=== PATIENT | male | born 1955 | race Caucasian/White ===

== ENCOUNTER 2016-07-28 07:09 | Inpatient (IN) | payer MEDICARE ==
[~2016-07-28] VITALS: Ht 182.9 cm; Wt 135.0 kg
[~2016-07-28 07:09] MED LIST: ALLO100T PO; ATOR20TA38 PO; BACTDS PO; BUME1TAB18 PO; CARV25TA79 PO; CEPH-443 PO; FER325 PO; HYDR-902 PO; HYDR-906 PO; INSU100V23 SC; LANT3I SC; LATA2.5D2 BOTH EYES; LOSA25TA5 PO; NIFE30TA60 PO; ONDA4TAB14 PO; PRED10TA PO
[2016-07-28 07:11] VITALS: Ht 182.9 cm; Wt 135.0 kg
[2016-07-28] MEDS ORDERED: ONDANSETRON 4 MG INJ IV STA (07:23)
[2016-07-28] MEDS ORDERED: SOD CHLORIDE 0.9% 1,000 ML IV STA (07:23)
[2016-07-28] MEDS ORDERED: HYDROmorphONE 1 MG/ML SYG IV STA (07:23)
--- NOTE | 2016-07-28 07:32 | ERA ---
ER Documentation Chief Complaint Date/Time DATE: 07/28/16 TIME: 07:31 Chief Complaint actively vomititing since last night; generalized abdominal pain HPI This is a 61-year-old male who presents emergency room with abdominal pain and vomiting who is concerned for possible small bowel obstruction. The patient has a history of ventral hernia status post surgical repair, mesh placement complicated by small bowel obstructions. He describes abdominal pain that is moderate to severe, cramping with nonbloody nonbilious emesis. Slightly loose stool yesterday evening. No fevers or chills. No chest pain or shortness of breath. ROS All systems reviewed and are negative except as per history of present illness. Medications Home Meds Reported Medications Nifedipine* (Nifedipine ER*) 30 Mg Tablet.sa, 30 MG PO BID, TAB.SA 02/21/16 Losartan Potassium* (Losartan Potassium*) 25 Mg Tablet, 25 MG PO DAILY, TAB 02/21/16 Latanoprost (Latanoprost) 2.5 Ml Drops, 1 DROP BOTH EYES QHS, #1 BOTTLE 02/21/16 Ferrous Sulfate* (Ferrous Sulfate*) 325 Mg Tabec, 325 MG PO DAILY, TAB 02/21/16 Carvedilol* (Carvedilol*) 25 Mg Tablet, 25 MG PO BID, #60 TAB 02/21/16 Bumetanide* (Bumetanide*) 1 Mg Tablet, 2 MG PO DAILY, TAB 02/21/16 Atorvastatin Calcium* (Atorvastatin Calcium*) 20 Mg Tablet, 20 MG PO DAILY, #30 TAB 02/21/16 Allopurinol* (Allopurinol*) 100 Mg Tablet, 100 MG PO BID, TAB 02/21/16 Prednisone* (Prednisone*) 10 Mg Tab, 10 MG PO DAILY Y for PRN, TAB 02/21/16 Insulin Glargine* (Lantus*) 100 Unit/Ml Soln, 55 UNIT SC QHS, #1 VIAL 06/22/15 Insulin Regular, Human* (Novolin R*) 100 U/Ml Vial, 10-12 UNIT SC AC MEALS, VIAL 06/22/15 Discontinued Reported Medications Hydrocodone/Acetaminophen (Hines 5-325 Tablet) 1 Each Tablet, 1 EACH PO Q4 Y for PRN, TAB 02/21/16 Discontinued Scripts Cephalexin* (Keflex*) 500 Mg Capsule, 500 MG PO QID for 7 Days, CAP Prov:KIRSTEN TORRES PA-C 02/23/16 Sulfamethoxazole-Trimethoprim* (Bactrim* DS) 800-160 Mg Tab, 1 TAB PO BID for 7 Days, TAB Prov:KIRSTEN TORRES PA-C 02/23/16 Ondansetron (Ondansetron Odt) 4 Mg Tab.rapdis, 4 MG PO Q6H Y for NAUSEA AND/OR VOMITING, #30 TAB Prov:RODNEY LAMBERT MD 02/21/16 Hydrocodone/Acetaminophen (Hines 10-325 Tablet) 1 Each Tablet, 1 TAB PO Q6H Y for PAIN, #7 TAB Prov:RODNEY LAMBERT MD 02/21/16 Hydrocodone/Acetaminophen (Hines 10-325 Tablet) 1 Each Tablet, 1 TAB PO Q6H Y for PAIN, #7 TAB Prov:MARCO A MITCHELLSTALEXUS Victoria DO 02/21/16 Ondansetron (Ondansetron Odt) 4 Mg Tab.rapdis, 4 MG PO Q6H Y for NAUSEA AND/OR VOMITING, #10 TAB Prov:LESELENAOSAPOSTOLOS AImelda DO 02/21/16 Allergies Allergies: Coded Allergies: No Known Allergy (Unverified , 02/21/16) PMhx/Soc History of Surgery: Yes (Hernia x3, Strangulated Bowel) Anesthesia Reaction: No Hx Neurological Disorder: No Hx Respiratory Disorders: No Hx Cardiac Disorders: Yes (HTN, CHF) Hx Psychiatric Problems: No Hx Miscellaneous Medical Probl: Yes (PVD, PAD, gout, anemia, hernia) Hx Alcohol Use: No Hx Substance Use: No Hx Tobacco Use: No FmHx Family History: No diabetes Physical Exam Vitals Vital Signs Date Time Temp Pulse Resp B/P Pulse Ox O2 Delivery O2 Flow Rate FiO2 07/28/16 08:51 56 21 147/61 99 07/28/16 07:11 98.3 58 19 156/70 99 Physical Exam General: Well developed, well nourished, no acute distress Head: Normocephalic, atraumatic. Eyes: Pupils equally reactive, EOM intact ENT: Moist mucous membranes Neck: Supple, no lymphadenopathy Respiratory: Lungs clear bilaterally, no distress Cardiovascular: RRR, no murmurs, rubs, or gallops Abdominal: Soft, large ventral hernia that is reducible, generalized tenderness without peritonitis : Deferred MSK: 3+ pitting bilateral lower extremity edema, no unilateral swelling, 5/5 strength Neurologic: Alert and oriented, moving all extremities, normal speech, no focal weakness, no cerebellar signs Skin: No rash Psych: Normal mood Result Diagram: 07/28/16 0732 07/28/16 0732 Results 24 hrs Laboratory Tests Test 07/28/16 07:32 White Blood Count 8.910^3/ul Red Blood Count 3.6210^6/ul Hemoglobin 9.8g/dl Hematocrit 31.1% Mean Corpuscular Volume 85.9fl Mean Corpuscular Hemoglobin 27.1pg Mean Corpuscular Hemoglobin Concent 31.5g/dl Red Cell Distribution Width 14.6% Platelet Count 62448^3/UL Mean Platelet Volume 9.3fl Neutrophils % 68.5% Lymphocytes % 16.7% Monocytes % 8.7% Eosinophils % 5.3% Basophils % 0.3% Nucleated Red Blood Cells % 0.0/100WBC Neutrophils # 6.110^3/ul Lymphocytes # 1.510^3/ul Monocytes # 0.810^3/ul Eosinophils # 0.510^3/ul Basophils # 0.010^3/ul Nucleated Red Blood Cells # 0.010^3/ul Prothrombin Time 13.2Sec Prothrombin Time Ratio 1.0 INR International Normalized Ratio 1.00 Activated Partial Thromboplast Time 30.3Sec Sodium Level 139mmol/L Potassium Level 4.0mmol/L Chloride Level 99mmol/L Carbon Dioxide Level 26mmol/L Anion Gap 18 Blood Urea Nitrogen 56mg/dl Creatinine 2.58mg/dl Glucose Level 144mg/dl Calcium Level 9.8mg/dl Total Bilirubin 0.3mg/dl Direct Bilirubin 0.00mg/dl Indirect Bilirubin 0.3mg/dl Aspartate Amino Transf (AST/SGOT) 22IU/L Alanine Aminotransferase (ALT/SGPT) 22IU/L Alkaline Phosphatase 86IU/L Total Protein 7.3g/dl Albumin 4.0g/dl Globulin 3.30g/dl Albumin/Globulin Ratio 1.21 Lipase 59U/L Current Medications Medications (Trade) Dose Ordered Sig/Maye Route PRN Reason Start Time Stop Time Status Last Admin Dose Admin Sodium Chloride (NS) 1,000 ml @ 1,000 mls/hr Q1H STAT IV 07/28/16 07:23 07/28/16 08:22 DC 07/28/16 07:35 Hydromorphone HCl (Dilaudid) 1 mg ONCE STAT IV 07/28/16 07:23 07/28/16 07:25 DC 07/28/16 07:35 Ondansetron HCl (Zofran Inj) 4 mg ONCE STAT IV 07/28/16 07:23 07/28/16 07:25 DC 07/28/16 07:36 Lorazepam (Ativan) 1 mg ONCE ONCE IV 07/28/16 09:00 07/28/16 09:01 DC 07/28/16 09:28 Lidocaine (Xylocaine (Viscous)) 15 ml ONCE ONCE PO 07/28/16 09:00 07/28/16 09:01 DC 07/28/16 09:30 Iohexol (Omnipaque 300mg/ ml) 15 ml ONCE STAT PO 07/28/16 09:12 07/28/16 09:44 DC Iohexol (Omnipaque 300mg/ ml) 100 ml ONCE STAT PO 07/28/16 09:35 07/28/16 09:44 DC Iohexol (Omnipaque 300mg/ ml) 60 ml ONCE STAT PO 07/28/16 09:42 07/28/16 09:44 DC Procedures/MDM EKG, MONITORS, & DIAGNOSTIC IMAGING: Chest x-ray: I reviewed and interpreted a 1 view of the chest Mediastinum: No enlargement Cardiac silhouette: No cardiomegaly Airspace: Clear lung levine bilaterally without evidence of pneumothorax Bones: No evidence of fracture CT abdomen and pelvis IMPRESSION: 1. The patient is status post previous small bowel resection with mild partial small-bowel obstructing extending to the level of the anastomoses. 2. Again noted is a wide mouth ventral hernia containing omental fat and bowel without evidence of incarceration. 3. Again noted is cholelithiasis without evidence of biliary ductal dilation. 4. Negative for intra-abdominal free air fluid or abscesses. No change in the bilateral inguinal lymphadenopathy. No intra-abdominal lymphadenopathy. 5. Mild cardiomegaly and coronary artery disease. atherosclerosis of the aorta and its branches but no aneurysm. RPTAT:AAJJ LAB INTERPRETATION: No significant leukocytosis, chronic renal insufficiency MEDICAL DECISION MAKING: The patient's presentation is consistent with potential small bowel obstruction given his surgical history and clinical examination. Also consider possible viral process given looser stool. Given the patient's age, comorbidities CT imaging of the abdomen and pelvis is necessary. Laboratory testing will be initiated the patient will be given IV fluids and pain control medications. ER COURSE: The patient CT imaging shows evidence of bowel obstruction with transition point. An NG tube was placed. The patient was given Ativan and viscous lidocaine. I spoke to the general surgeon seasonal delivery driver, Dr. Gan. He would like 100 cc of Omnipaque given via NG tube and an acute abdominal series ordered 6 hours from medication being given. The patient is hemodynamically stable. I kept the patient and/or family informed of laboratory and diagnostic imaging results throughout the emergency room course. DISPOSITION PLAN: Medical surgical admission for management of small bowel obstruction CONSULTATION: Accepting care team and consultations: I discussed the current laboratory data, diagnostic imaging and emergency care provided. Admitting team: Dr. Grissom Admitting team indication: Insurance directed, primary care physician did not call back for greater than 1 hour. Patient admitted to panel. Consulting services: General surgeon, Dr. Gan Departure Diagnosis: Primary Impression: Small bowel obstruction Additional Impression: Chronic renal insufficiency Qualified Code: N18.9 - Chronic renal insufficiency, unspecified stage Condition: Stable LIVIA NARAYAN MD Jul 28, 2016 07:32
--- NOTE | 2016-07-28 08:15 | RADRPT ---
PROCEDURE: XR Chest. CLINICAL INDICATION: Abdominal Pain TECHNIQUE: Single AP view of the chest was obtained. COMPARISON: None FINDINGS: There is mild cardiomegaly and low lung volumes with prominence of interstitial markings, likely due to congestive changes and vascular crowding. The aortic arch is calcified. There is no significant pleural effusion or pneumothorax. Osseous and soft tissue structures are unremarkable. IMPRESSION: Mild cardiomegaly and low lung volumes with prominence of interstitial markings, likely due to conge stive changes and vascular crowding. Aortic atherosclerosis. No focal infiltrates or effusions. RPTAT: EE Physician Kody Date Time Electronically viewed and signed by Jonathon Aldana Physician on 07/28/2016 08:15 RA/
[2016-07-28 08:36] LABS: ADD SCAN DIFF NO
[2016-07-28 08:41] LABS: BASOPHILS % 0.3 % (0.0-2.0); EOSINOPHILS # 0.5 10^3/ul (0.0-0.5); EOSINOPHILS % 5.3 % (0.0-7.0); HEMATOCRIT 31.1 % (42.0-52.0); HEMOGLOBIN 9.8 g/dl (14.0-18.0); LYMPHOCYTES # 1.5 10^3/ul (0.8-2.9); LYMPHOCYTES % 16.7 % (15.0-51.0); MEAN CORPUSCULAR HEMOGLOBIN 27.1 pg (29.0-33.0); MEAN CORPUSCULAR HGB CONC 31.5 g/dl (32.0-37.0); MEAN CORPUSCULAR VOLUME 85.9 fl (82.0-101.0); MEAN PLATELET VOLUME 9.3 fl (7.4-10.4); MONOCYTE # 0.8 10^3/ul (0.3-0.9); MONOCYTES % 8.7 % (0.0-11.0); NEUTROPHIL # 6.1 10^3/ul (1.6-7.5); NEUTROPHILS % 68.5 % (39.0-77.0); PLATELET COUNT 244 10^3/UL (140-415); RED BLOOD COUNT 3.62 10^6/ul (4.70-6.10); RED CELL DISTRIBUTION WIDTH 14.6 % (11.5-14.5); WHITE BLOOD COUNT 8.9 10^3/ul (4.8-10.8)
--- NOTE | 2016-07-28 08:43 | RADRPT ---
AMENDMENT: 07/28/2016 7:14:58 PM Jaya Quevedo Md ADDENDUM: Although there is focal dilatation of the small bowel at the site of anastomosis in the right mid ab domen, small bowel returns normal-caliber immediately proximal and distal to the anastomoses. The s mall bowel obstruction as configuration and most suspicious for obstruction related to the described ventral hernia. PROCEDURE: CT Abdomen and pelvis without contrast. CLINICAL INDICATION: Abdominal pain. Umbilical hernia. TECHNIQUE: CT scan of the abdomen and pelvis without contrast was performed on a multidetector hig h-resolution CT scan. . Coronal and sagittal reformatted images were obtained from the axial [facility] e images. Standard CT scan of the abdomen pelvis without contrast protocols were performed. The total exam CTDI equals 22.77 mGy and the total exam DLP equals 1729.21 mGy-cm. One or more of the following dose reduction techniques were used: - Automated exposure control. - Adjustment of the mA and/or kV according to patient size. Use of iterative reconstruction technique. COMPARISON: CT abdomen pelvis without contrast 02/21/2016 FINDINGS: Again noted is evidence of previous partial small-bowel obstruction involving the small bowel in the right mid abdomen. Note that there are mildly dilated loops of small bowel extending to the level of the anastomoses with normal caliber small bowel distal to the anastomoses. Consistent with mild partial small-bowel obstruction. Again noted is a wide mouth ventral hernia containing omental fat and bowel without evidence of incarceration. The stomach and large bowel are unremarkable. Negativ e for intra-abdominal free air, free fluid or abscesses. Again noted is bilateral inguinal lymphade nopathy. No intra-abdominal lymphadenopathy. Again noted is cholelithiasis without evidence of biliary ductal dilation. The liver spleen pancrea s and adrenal glands are normal size configuration without focal lesions. The kidneys are normal in size without evidence of calcified renal calculi, hydronephrosis or intra renal masses bilaterally. The urinary bladder is unremarkable. The prostate gland is unremarkable. There is atherosclerosis of the aorta and its branches but no aneurysm. Minimal dependent atelectas is. The lung bases are otherwise unremarkable. The heart is mildly enlarged and there is coronary artery disease present. There is extensive degenerative changes lower thoracic and lumbar spine. N o acute osseous findings. There are no osteoblastic/osteolytic lesions. IMPRESSION: 1. The patient is status post previous small bowel resection with mild partial small-bowel obstruct ing extending to the level of the anastomoses. 2. Again noted is a wide mouth ventral hernia containing omental fat and bowel without evidence of incarceration. 3. Again noted is cholelithiasis without evidence of biliary ductal dilation. 4. Negative for intra-abdominal free air fluid or abscesses. No change in the bilateral inguinal l ymphadenopathy. No intra-abdominal lymphadenopathy. 5. Mild cardiomegaly and coronary artery disease. atherosclerosis of the aorta and its branches bu t no aneurysm. RPTAT:AAJJ .Jaya Quevedo MD, MD Date Time Electronically viewed and signed by .Jaya Quevedo MD, on 07/28/2016 19:15 .K/
[2016-07-28 08:52] LABS: PROTIME 13.2 Sec (12.2-14.2)
[2016-07-28 08:53] LABS: PARTIAL THROMBOPLASTIN TIME 30.3 Sec (25.0-35.0)
[2016-07-28 08:56] LABS: CREATININE 2.58 mg/dl (0.61-1.24)
[2016-07-28 08:57] LABS: ALBUMIN/GLOBULIN RATIO 1.21; BILIRUBIN,INDIRECT 0.3 mg/dl (0-1.1); BILIRUBIN,TOTAL 0.3 mg/dl (0.2-1.3); CALCIUM 9.8 mg/dl (8.4-10.2); TOTAL PROTEIN 7.3 g/dl (6.1-8.1)
[2016-07-28] MEDS ORDERED: LIDOCAINE 2% VISC 15 ML CUP PO ONE (09:00)
[2016-07-28] MEDS ORDERED: LORAZEPAM 2 MG INJ IV ONE (09:00)
[2016-07-28] MEDS ORDERED: IOHEXOL 300MG/ML 30 ML BTL PO STA ×3 (09:12→09:42)
[2016-07-28] MEDS ORDERED: ONDANSETRON 4 MG INJ IV PRN (10:30)
[2016-07-28] MEDS ORDERED: ACETAMINOPHEN 325 MG TAB PO PRN ×2 (10:30→11:00)
[2016-07-28] MEDS: D5W-0.45 NACL + KCL 20 MEQ 1,000 ML IV SCH ×2 (10:48→12:22)
[2016-07-28] MEDS ORDERED: BISACODYL (EC) 5 MG TAB PO PRN (11:00)
[2016-07-28] MEDS ORDERED: NACL 0.9% 3 ML SYG IV SCH (11:00)
[2016-07-28] MEDS ORDERED: GLUCAGON 1 MG INJ IM PRN (11:00)
[2016-07-28] MEDS ORDERED: DEXTROSE 50% 50 ML SYRINGE IV PRN ×2 (11:00)
[2016-07-28] MEDS ORDERED: DOCUSATE SODIUM 100 MG CAP PO PRN (11:00)
[2016-07-28] MEDS ORDERED: HYDROCODONE/APAP (5/325) TAB PO PRN (11:00)
[2016-07-28] MEDS ORDERED: ACETAMINOPHEN 650 MG SUPP PR PRN (11:00)
[2016-07-28] MEDS ORDERED: GLUCOSE GEL 15 GRAM TUBE PO PRN ×2 (11:00)
[2016-07-28] MEDS ORDERED: GLUCOSE GEL 15 GRAM TUBE BUCCAL PRN (11:00)
[2016-07-28 11:10] VITALS: PULSE 60; TEMP 97.9
[2016-07-28 12:14] VITALS: BP 178/77; RESP 19
[2016-07-28] MEDS: INSULIN ASPART [NOVOLOG] 3 ML PEN SC SCH ×3 (12:25→20:51)
[2016-07-28] MEDS: morphine 2 MG INJ IV PRN ×3 (12:31→20:49)
[2016-07-28] MEDS: ONDANSETRON 4 MG INJ IV PRN ×2 (12:31→20:57)
[2016-07-28] MEDS: NIFEdipine (XL) 30 MG TAB PO SCH ×2 (16:07→20:50)
--- NOTE | 2016-07-28 16:28 | CONS ---
DATE OF ADMISSION: 07/28/2016 DATE OF CONSULTATION: 07/28/2016 REASON FOR CONSULTATION: Congestive heart failure. CHIEF COMPLAINT: Abdominal pain. HISTORY OF PRESENT ILLNESS: Thank you for this referral. History obtained from the patient who is a poor historian, extensive review of the old chart, discussion with physician and staff. This is a 61-year-old gentleman with history of congestive heart failure, hypertension, diabetes, chronic kid sarah disease, and history of small-bowel obstruction who was admitted with complaint of abdominal vidhya n. The patient says since yesterday he has had severe abdominal pain, diffuse, could not explain ex acerbating factor. Also has had some nausea, vomiting. He has been admitted for further workup inc luding a workup for small-bowel obstruction. His blood pressure has been elevated. He denies any P ND, orthopnea to me. Denies any chest pain, left-sided chest pain or pressure to me. He denies any shortness of breath to me at this point, does not walk much, mostly bed bound. PAST MEDICAL HISTORY: History of hypertension, history of diabetes, chronic kidney disease, history of small-bowel obstruction, history of congestive heart failure, unclear, probably related to diast olic dysfunction and fluid overload. MEDICATIONS PRIOR TO ADMISSION: Include: 1. Losartan. 2. Nifedipine 30 b.i.d. 3. Coreg 12.5 b.i.d. 4. Coreg 25 b.i.d. 5. Lipitor. 6. Allopurinol. 7. Prednisone. 8. Insulin. ALLERGIES: NO REPORTED ALLERGIES. SOCIAL HISTORY: Denies any active tobacco, alcohol or drug abuse. FAMILY HISTORY: Patient's mother with hypertension. REVIEW OF SYSTEMS: He denied all other except for above-mentioned. Currently complains that he is s leepy. PHYSICAL EXAMINATION: VITAL SIGNS: Temperature 98, heart rate of 61, blood pressure 178/77, respiration rate of 19, satur ating 96%. HEENT: Normocephalic, atraumatic. Obese gentleman. Pupils are equal. CARDIOVASCULAR: Regular rate and rhythm, systolic murmur. PULMONARY: With no wheezes heard anteriorly and posteriorly. GASTROINTESTINAL: Obese, soft. Mild tender to palpation. EXTREMITIES: Positive diffuse lower extremity edema. NEUROLOGIC: Awake and alert. PSYCHIATRIC: Agitated easily. DERMATOLOGIC: With hyperpigmentation of lower extremities. LABORATORY: Sodium 139, potassium 4, BUN of 56, creatinine is 2.58, glucose 144. Review of the old chart showed that patient's creatinine was 2.97 in February last lipid panel we have on him from a year ago in 2016 shows cholesterol 147, LDL 77, HDL of 27, per review of the old chart. EKG is not done yet. DIAGNOSTIC DATA: Chest x-ray was personally reviewed as well, radiologist showed marked cardiomegal y, low lung volumes, prominent interstitial marking, likely due to congestive changes and vascular c rowding. ASSESSMENT AND PLAN: 1. Congestive heart failure, chronic and appeared to be stable, probably diastolic dysfunction. 2. Hypertension. 3. Diabetes. 4. Chronic kidney disease. 5. Abdominal pain and possible small-bowel obstruction. RECOMMENDATIONS: Bumex will be continued for now. Echocardiogram has been ordered and waiting to b e done so it can be evaluated. Renal function management as per internal medicine and possibly inder moore consultation. I will resume patient on Procardia. GI workup and treatment as per internal medici ne. EKG has been ordered to be done as well. Dictated By: SELENE SCOTT MD AV/NICO Conf#: [id number] DID#: [id number] CC: GENTRY MART MD;*End*
--- NOTE | 2016-07-28 17:08 | HP ---
DATE OF ADMISSION: 07/28/2016 CONSULTANTS: 1. Dr. Duke Gan. 2. Dr. Justin Pereira, Cardiology. CHIEF COMPLAINT: Abdominal pain with nausea and vomiting. HISTORY OF PRESENT ILLNESS: This is a 61-year-old gentleman with past medical history of umbilical hernia, status post hernia repair and mesh placement x2 and also small-bowel obstruction and explora tory laparotomy in [address] [place] [address] Chase with history of gout, dyslipidemia, congestive heart failure, hypertension, iron deficiency anemia, diabetes mellitus, diabetic nephropathy, diabet ic neuropathy and chronic steroids and moderate obesity who presents to [facility] secondary to having abdominal pain which started yesterday on 07/27/2016 in the evening accompanied with nausea and vomiting x5 since that night. This morning, the patient presented to [facility]. CT abdomen and pelvis was obtained which showed mild partial small-bowel obstructi on extending to the level of the anastomosis, wide mouth ventral hernia containing omental fat and b owel without evidence of incarceration, cholelithiasis without evidence of biliary ductal dilation, negative for intraabdominal fluid or abscesses, no cardiomegaly, coronary artery disease, atheroscle rosis of the aorta and its branches but no aneurysm. The patient was made n.p.o. NG tube was place d and general surgery was consulted. She was also treated with Zofran, Dilaudid, normal saline and Ativan in the course of the ER. At this time, the patient is lying in bed comfortably without any d istress. He is awake, alert, oriented. He is able to answer my questions properly. He denies havi ng any fever, chills, weight gain, weight loss. Positive for abdominal pain, anorexia and decreased appetite. Positive for abdominal pain, nausea, vomiting. No diarrhea. No chest pain, palpitation s. Positive for edema which is chronic. No heat or cold intolerance. No headache, dizziness, ligh theadedness. No change in visual acuity. No dysuria, hematuria, urgency, incontinence. No change in the color of stool or any other discomfort. PAST MEDICAL AND SURGICAL HISTORY: As above per HPI. MEDICATIONS: 1. Atenolol. 2. Lipitor. 3. Bumex. 4. Coreg. 5. Ferrous sulfate. 6. Lantus. 7. NovoLog R. 8. Benazepril. 9. Losartan. 10. Nifedipine. 11. Prednisone. ALLERGIES: NO KNOWN DRUG ALLERGIES. FAMILY HISTORY: Positive for diabetes mellitus and hypertension. SOCIAL HISTORY: Denies having any history of smoking, no alcohol, no illicit drug. REVIEW OF SYSTEMS: As above per HPI, otherwise 12 review of systems be negative. PHYSICAL EXAMINATION: VITAL SIGNS: Temperature 98.0, pulse ____, respiration 19, blood pressure 178/77, oxygen 96% in luz maria m air. GENERAL APPEARANCE: The patient is lying in bed comfortably without distress. He is awake, alert, oriented. He is able to answer my questions properly. Body habitus morbidly obese, BMI of 40.4. EYES AND ENT: Conjunctivae and lids are normal. Pupils are normal. Extraocular normal. Hearing g rossly normal. Lips and gums normal. Oral mucosa is dry. NECK: Supple. Trachea is midline. No lymphadenopathy. RESPIRATORY: Effort is normal. Clear to auscultation bilaterally. CARDIOVASCULAR: Normal S1, S2. Regular rhythm and rate. Positive II/ murmur at the apex. Posit mireya edema bilateral lower extremities. LUNGS: Clear to auscultation bilaterally. GASTROINTESTINAL: Abdomen is mildly distended. There is a ventral hernia and abdominal hernia whic h is about 10 x 8 cm, easily reducible, although tender. Bowel sounds are distant and hypoactive, a lthough present. GENITOURINARY: Deferred. MUSCULOSKELETAL: Upper extremities within normal limit. Lower extremities: There is severe stasis dermatitis, stage II. There is 2+ edema bilateral lower extremities. NEUROLOGIC: Cranial nerves II through XII are grossly intact. GENERAL: Awake, alert, oriented. LABORATORY WORK AND IMAGING: WBC 8.9, hemoglobin 9.8, hematocrit 31.0, platelets 244. Sodium 139, potassium 4.0, chloride 99, bicarbonate 26, BUN 56, creatinine 2.58, glucose 144, glucose 116, calci um 9.8, total bilirubin 0.3, direct bilirubin 0, indirect bilirubin 0.3, AST 22, ALT 22, alkaline ph osphatase 86, total protein 7.3, albumin 4.00, globulin 3.30. Lipase 59. ASSESSMENT AND PLAN: 1. Small-bowel obstruction extending to area of anastomosis of prior surgery. General Surgery has been consulted. The patient is n.p.o., IV fluid, pain medication. Give patient bowel rest. Follow general surgery recommendation. 2. Morbid obesity. 3. Essential hypertension. Continue home medication with Coreg and Bumex, Losartan. 4. Diabetes mellitus. At this time, the patient is n.p.o. We will decrease the Lantus to 55 units to 25 units insulin sliding scale. We will follow hemoglobin A1c. 6. Dyslipidemia. Continue statin. 7. History of anemia. Continue ferrous sulfate when patient is able to tolerate oral intake. 8. Congestive heart failure. Continue losartan, Bumex. Cardiology has been consulted. Obtain a 2 D echocardiogram. 9. Systolic murmur. Obtain a 2D echocardiogram. Follow cardiology recommendation. 10. For deep venous thrombosis prophylaxis on sequential compression devices. 11. For gastrointestinal prophylaxis on proton pump inhibitor. 12. We will continue to monitor patient closely. Further recommendations, management and treatment as per clinical course. Dictated By: GENTRY CABRERA/NICO Conf#: [id number] DID#: [id number]
--- NOTE | 2016-07-28 18:31 | RADRPT ---
PROCEDURE: XR Abdomen supine and upright. CLINICAL INDICATION: Small bowel obstruction TECHNIQUE: AP supine cyst/AP upright views available for review COMPARISON: CT abdomen/pelvis 07/28/2016 FINDINGS: Nasogastric tube in the stomach. No organomegaly is identified. There is small bowel distension (4 cm). No gas is identified within the colon. No free air is identified. No calculi are identified. The axial skeleton is unremarkabl e. IMPRESSION: Small bowel distension (4 cm). No gas identified within the colon. Findings consistent with a small bowel obstruction RPTAT: HGDB .Cameron Sanchez MD, Date Time Electronically viewed and signed by .Cameron Sanchez MD, on 07/28/2016 18:30 .B/
[2016-07-28 19:22] VITALS: BP 165/74; RESP 20
[2016-07-28] MEDS: ALLOPURINOL 100 MG TAB PO SCH (20:51)
[2016-07-28] MEDS: LATANOPROST 0.005% 2.5 ML OPH BOTH EYES SCH (21:00)
[2016-07-28] MEDS: INSULIN GLARGINE [LANtus] 3 ML PEN SC SCH (21:00)
--- NOTE | 2016-07-28 23:02 | CONS ---
DATE OF ADMISSION: 07/28/2016 DATE OF CONSULTATION: 07/28/2016 HISTORY OF PRESENT ILLNESS: Mr. 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 He states that he has been unable to eat and his last bowel movement was yesterday. He has prior episode of multiple small bowel obstructions. These sym ptoms are similar. He presented to the ER. PAST MEDICAL HISTORY: Significant for gout, dyslipidemia, congestive heart failure, hypertension, i adela deficiency anemia, diabetes, nephropathy, diabetic neuropathy, chronic steroid use, and morbid o besity. MEDICATION: 1. Atenolol. 2. Lipitor. 3. Bumex. 4. Coreg. 5. Ferrous sulfate. 6. Lantus. 7. NovoLog. 8. Benazepril. 9. Losartan. 10. Nifedipine. 11. Prednisone. PAST SURGICAL HISTORY: Umbilical hernia repair x2, also bowel obstruction with exploratory laparoto my and bowel resection in 2009. ALLERGIES: NO KNOWN DRUG ALLERGIES. FAMILY HISTORY: Diabetes mellitus and hypertension. SOCIAL HISTORY: Denies drinking, drug use, or smoking. PHYSICAL EXAMINATION: GENERAL: A well-developed, well-nourished, obese male in no apparent distress. VITAL SIGNS: He is afebrile. Vital signs stable. CHEST: Clear to auscultation bilaterally. HEART: Regular rhythm. ABDOMEN: Soft, mildly distended with an obvious umbilical hernia with multiple loops of small bowel present. I was able to easily reduce the hernia back into the abdomen. LABORATORY DATA: CBC reveals white count of 9, hematocrit of 32, and platelets of 244. Sodium 139, potassium 4, chloride 199, CO2 of 26, BUN and creatinine 56 and 2.5, and glucose 144. His CT revea led a small-bowel obstruction with the transition point at the prior anastomosis. I have reviewed t he CT myself and also discussed with the radiologist. We both agreed that the site of obstruction i s the hernia. ASSESSMENT AND PLAN: Mr. Childers is a 61-year-old male with a small-bowel obstruction, likely from h is ventral hernia. 1. This was reduced by me just now and this should resolve his obstruction. 2. Follow up abdominal series in the morning to see if contrast made it into the colon. 3. Also, will order an abdominal binder for the patient to prevent multiple recurrences. 4. The patient should likely have this fixed at some point, but he is a high surgical risk. Dictated By: MOO ADAMES/NTS Conf#: [id number] DID#: [id number] CC: EGNTRY MART MD;*End*
[2016-07-29] MEDS: INSULIN ASPART [NOVOLOG] 3 ML PEN SC SCH ×6 (01:00→21:00)
[2016-07-29] MEDS: D5W-0.45 NACL + KCL 20 MEQ 1,000 ML IV SCH ×3 (01:06→14:42)
[2016-07-29] MEDS: PANTOPRAZOLE 40 MG INJ IV SCH (05:40)
[2016-07-29 06:31] LABS: ALBUMIN 3.1 g/dl (3.3-4.9); ALBUMIN/GLOBULIN RATIO 0.91; BILIRUBIN,INDIRECT 0.4 mg/dl (0-1.1); BILIRUBIN,TOTAL 0.4 mg/dl (0.2-1.3); CHOL/HDL RATIO 4.1 RATIO; CREATININE 2.36 mg/dl (0.61-1.24); TOTAL PROTEIN 6.5 g/dl (6.1-8.1)
[2016-07-29 06:57] LABS: THYROID STIMULATING HORMONE 2.82 MIU/L (0.465-4.680)
[2016-07-29 07:30] VITALS: BP 146/65; RESP 18
[2016-07-29 08:02] LABS: ADD SCAN DIFF NO
[2016-07-29 08:11] LABS: MAGNESIUM 1.8 mg/dl (1.7-2.5)
[2016-07-29 08:12] LABS: BASOPHILS % 0.1 % (0.0-2.0); EOSINOPHILS # 0.3 10^3/ul (0.0-0.5); EOSINOPHILS % 4.5 % (0.0-7.0); HEMATOCRIT 29.6 % (42.0-52.0); HEMOGLOBIN 9.1 g/dl (14.0-18.0); LYMPHOCYTES # 1.2 10^3/ul (0.8-2.9); LYMPHOCYTES % 15.5 % (15.0-51.0); MEAN CORPUSCULAR HEMOGLOBIN 26.8 pg (29.0-33.0); MEAN CORPUSCULAR HGB CONC 30.7 g/dl (32.0-37.0); MEAN CORPUSCULAR VOLUME 87.1 fl (82.0-101.0); MEAN PLATELET VOLUME 9.7 fl (7.4-10.4); MONOCYTE # 0.8 10^3/ul (0.3-0.9); MONOCYTES % 10.8 % (0.0-11.0); NEUTROPHIL # 5.2 10^3/ul (1.6-7.5); NEUTROPHILS % 68.8 % (39.0-77.0); PLATELET COUNT 205 10^3/UL (140-415); RED CELL DISTRIBUTION WIDTH 14.7 % (11.5-14.5); WHITE BLOOD COUNT 7.6 10^3/ul (4.8-10.8)
[2016-07-29] MEDS: ALLOPURINOL 100 MG TAB PO SCH ×2 (08:27→21:08)
[2016-07-29] MEDS: BUMETANIDE 1 MG TAB PO SCH (08:27)
[2016-07-29] MEDS: LOSARTAN 25 MG TAB PO SCH (08:27)
[2016-07-29] MEDS: morphine 2 MG INJ IV PRN ×2 (08:27→12:28)
[2016-07-29] MEDS: NIFEdipine (XL) 30 MG TAB PO SCH ×2 (08:28→21:09)
[2016-07-29] MEDS: DICLOFENAC SODIUM 1% GEL 100 GM TUBE TP PRN ×2 (12:28→21:22)
--- NOTE | 2016-07-29 14:04 | PN ---
Date/Time of Note Date/Time of Note DATE: 07/29/16 TIME: 14:01 Assessment/Plan VTE Prophylaxis VTE Prophylaxis Intervention: SCD's Lines/Catheters IV Catheter Type (from Nrs): Peripheral IV Assessment/Plan Chief Complaint/Hosp Course ASSESSMENT AND PLAN: 1. Small-bowel obstruction extending to area of anastomosis of prior surgery. General Surgery has been consulted. The patient is n.p.o., IV fluid, pain medication. Continue bowel rest and NG tube. Follow general surgery recommendation. 2. Morbid obesity. 3. Essential hypertension. Continue home medication with Coreg and Bumex, Losartan. 4. Diabetes mellitus. At this time, the patient is n.p.o. continue Lantus, insulin sliding scale 6. Dyslipidemia. Continue statin. 7. History of anemia. Continue ferrous sulfate when patient is able to tolerate oral intake. 8. Congestive heart failure. Continue losartan, Bumex. Cardiology has been consulted. Obtain a 2D echocardiogram. 9. Systolic murmur. Obtain a 2D echocardiogram. Follow cardiology recommendation. 10. For deep venous thrombosis prophylaxis on sequential compression devices. 11. For gastrointestinal prophylaxis on proton pump inhibitor. We will continue to monitor patient closely. Further recommendations, management and treatment as per clinical course. Problems: Subjective 24 Hr Interval Summary Free Text/Dictation Patient has been noncompliant with medical management such as to the echocardiogram and abdominal binder NG tube in place Minimal abdominal discomfort Exam/Review of Systems Vital Signs Vitals Vital Signs Date Time Temp Pulse Resp B/P Pulse Ox O2 Delivery O2 Flow Rate FiO2 07/29/16 07:30 98.2 64 18 146/65 93 07/28/16 11:10 Room Air Intake and Output 07/28/16 07/28/16 07/29/16 15:00 23:00 07:00 Intake Total 350 ml 300 ml Output Total 2550 ml Balance 350 ml -2250 ml Exam General: The patient is morbidly obese. BMI of 40.4, Not in acute distress. HEENT: Atraumatic, normocephalic. The pupils are equal and round . NG tube in place Neck: Supple with full range of motion. Chest: Normal expansion of the thorax during inspiration Lungs: Clear to auscultation bilaterally Heart: Normal S1-S2, Regular rhythm and rate. Abdomen: Soft , nontender, nondistended , bowel sounds are present. Extremities: Normal to inspection, no edema no cyanosis Neurologic: Normal mental status,The patient is awake, alert and oriented . Results Result Diagram: 07/29/1651607/29/16516 Results 24 hrs Laboratory Tests Test 07/28/16 16:41 07/28/16 20:48 07/29/16 01:13 07/29/16 04:57 Bedside Glucose 103 102 121 Free Thyroxine 0.58 L Test 07/29/16 05:17 07/29/16 05:34 07/29/16 08:29 07/29/16 12:28 White Blood Count 7.6 Red Blood Count 3.40 L Hemoglobin 9.1 L Hematocrit 29.6 L Mean Corpuscular Volume 87.1 Mean Corpuscular Hemoglobin 26.8 L Mean Corpuscular Hemoglobin Concent 30.7 L Red Cell Distribution Width 14.7 H Platelet Count 205 Mean Platelet Volume 9.7 Neutrophils % 68.8 Lymphocytes % 15.5 Monocytes % 10.8 Eosinophils % 4.5 Basophils % 0.1 Nucleated Red Blood Cells % 0.0 Neutrophils # 5.2 Lymphocytes # 1.2 Monocytes # 0.8 Eosinophils # 0.3 Basophils # 0.0 Nucleated Red Blood Cells # 0.0 Sodium Level 137 Potassium Level 4.0 Chloride Level 105 Carbon Dioxide Level 30 Anion Gap 6 #L Blood Urea Nitrogen 46 H Creatinine 2.36 H Glucose Level 111 Hemoglobin A1c 6.3 H Calcium Level 9.0 Magnesium Level 1.8 Total Bilirubin 0.4 Direct Bilirubin 0.00 Indirect Bilirubin 0.4 Aspartate Amino Transf (AST/SGOT) 18 Alanine Aminotransferase (ALT/SGPT) 23 Alkaline Phosphatase 75 B-Type Natriuretic Peptide 3310 H Total Protein 6.5 Albumin 3.1 L Globulin 3.40 H Albumin/Globulin Ratio 0.91 Triglycerides Level 191 H Cholesterol Level 113 LDL Cholesterol, Calculated 48 HDL Cholesterol 27 L Cholesterol/HDL Ratio 4.1 Lipase 24 Thyroid Stimulating Hormone (TSH) 2.820 Digoxin Level < 0.4 L Bedside Glucose 109 110 96 Medications Medications Current Medications Potassium Chloride/Dextrose/ Sod Cl (D5-1/2ns + KCl 20 Meq) 1,000 ml @ 70 mls/ hr [id number] IV Last administered on 07/29/16t 11:04; Admin Dose 70 MLS/HR; Start 07/28/16 at 10:48 Ondansetron HCl (Zofran Inj) 4 mg Q6H PRN IV NAUSEA AND/OR VOMITING Last administered on 07/28/16 20:57; Admin Dose 4 MG; Start 07/28/16 at 11:00 Acetaminophen (Tylenol Tab) 650 mg Q6H PRN PO PAIN LEVEL 1-3 OR FEVER; Start at 11:00 Acetaminophen (Tylenol Supp) 650 mg Q6H PRN [place] PAIN LEVEL 1-3 OR FEVER; Start 07/28/16 at 11:00 Acetaminophen/ Hydrocodone Bitart ([place] (5/325)) 1 tab Q6H PRN PO MODERATE PAIN LEVEL 4-6; Start 07/28/16 at 11:00 Morphine Sulfate (morphine) 2 mg Q4H PRN IV SEVERE PAIN LEVEL 7-10 Last administered on 07/29/16 12:28; Admin Dose 2 MG; Start 07/28/16 at 11:00 Docusate Sodium (Colace) 100 mg Q12H PRN PO CONSTIPATION; Start 07/28/16 at 11: 00 Bisacodyl (Dulcolax) 5 mg DAILY PRN PO CONSTIPATION; Start 07/28/16 at 11:00 Pantoprazole (Protonix Iv) 40 mg DAILY@06 IV Last administered on 07/29/16 05: 40; Admin Dose 40 MG; Start 07/29/16 at 06:00 Allopurinol (Zyloprim) 100 mg BID PO Last administered on 07/29/16 08:27; Admin Dose 100 MG; Start 07/28/16 at 21:00 Bumetanide (Bumex) 2 mg DAILY PO Last administered on 07/29/16 08:27; Admin Dose 2 MG; Start 07/29/16 at 09:00 Carvedilol (Coreg) 12.5 mg BID PO Last administered on 07/29/16 08:28; Admin Dose 12.5 MG; Start 07/28/16 at 21:00 Insulin Glargine (Lantus) 25 unit QHS SC ; Start 07/28/16 at 21:00 Latanoprost (Xalatan) 1 drop QHS BOTH EYES ; Start 07/28/16 at 21:00 Losartan Potassium (Cozaar) 25 mg DAILY PO Last administered on 07/29/16 08:27 ; Admin Dose 25 MG; Start 07/29/16 at 09:00 Insulin Aspart (Novolog Insulin Pen) NOVOLOG *MILD* ALGORI... Q4 SC ; Start at 13:00 Miscellaneous Information 1 ea NOTE XX ; Start 07/28/16 at 11:00 Glucose (Glutose) 15 gm Q15M PRN PO DECREASED GLUCOSE; Start 07/28/16 at 11:00 Glucose (Glutose) 22.5 gm Q15M PRN PO DECREASED GLUCOSE; Start 07/28/16 at 11: 00 Dextrose (D50w Syringe) 25 ml Q15M PRN IV DECREASED GLUCOSE; Start 07/28/16 at 11:00 Dextrose (D50w Syringe) 50 ml Q15M PRN IV DECREASED GLUCOSE; Start 07/28/16 at 11:00 Glucagon (Glucagen) 1 mg Q15M PRN IM DECREASED GLUCOSE; Start 07/28/16 at 11:00 Glucose (Glutose) 15 gm Q15M PRN BUCCAL DECREASED GLUCOSE; Start 07/28/16 at 11 :00 Nifedipine (Procardia Xl) 30 mg BID PO Last administered on 07/29/16 08:28; Admin Dose 30 MG; Start 07/28/16 at 16:00 Clonidine (Catapres) 0.1 mg Q4H PRN PO sbp > 170; Start 07/28/16 at 16:00 Diclofenac Sodium (Voltaren 1% Gel) 2 gm Q3H PRN TP PAIN Last administered on 12:28; Admin Dose 2 GM; Start 07/29/16 at 12:00 GENTRY MART MD Jul 29, 2016 14:04
--- NOTE | 2016-07-29 15:10 | RADRPT ---
PROCEDURE: XR Abdomen. CLINICAL INDICATION: SBO TECHNIQUE: AP abdomen x-ray. COMPARISON: Abdominal radiograph and CT abdomen/pelvis from 07/28/2016 FINDINGS: Previously administered contrast is now noted opacifying the colon from the cecum to the distal desc ending portion. Several small air-fluid levels are noted in the mid abdomen and left upper quadrant , possibly indicating persistent low grade/resolving obstruction and / or ileus. Osseous and soft tissue structures are unremarkable. IMPRESSION: Previously administered oral contrast is now noted in the colon indicating a partial and / or resolv ing obstruction, as above. RPTAT: EE Physician Kody Date Time Electronically viewed and signed by Physician Kody on 07/29/2016 15:10 RA/
--- NOTE | 2016-07-29 16:36 | RADRPT ---
Echocardiogram Report Patient Name: YO GREEN Gender: Male Date: 1955 Study Date: 29-Jul-2016 Car Changer: FLORENCIO [facility] Location: 610 Ref. Physician: SELENE PEREIRA Quality: Technically Difficult Study Procedures: Transthoracic echocardiogram with complete 2D, M-Mode, and doppler examination. Indications: Congestive Heart Failure. 2D/M Mode Doppler Measurement Value Normal Ranges Measurement Value Normal Ranges LVIDd 2D 5.2 3.5 - 5.6 cm ROCIO Vmax 6.9 cm2 LVIDs 2D 3.7 2.1 - 4.1 cm AV Peak Crescencio 1.4 m/sec LVPWd 2D 1.3 0.6 - 1.1 cm AV Peak PG 7.5 mmHg IVSd 2D 1.3 0.6 - 1.1 cm LVOT Peak Crescencio 1.1 m/sec AoR Diam 2D 3.2 2.0 - 3.7 cm LVOT Peak PG 4.6 mmHg EDV 2D 129.2 cm3 MV E Peak Crescencio 0.8 m/sec ESV 2D 50.5 cm3 MV A Peak Crescencio 0.6 m/sec MV E/A 1.4 MV Decel Time 240 msec MV Decel [place] 3 MV E/A 1.4 Findings Left Ventricle: Normal left ventricular systolic function. Normal left ventricular cavity size. Mild concentric left ventricular hypertrophy. Mild enlargement of left ventricle cavity. Ejection fraction is visually estimated at 65 %. Abnormal Diastolic Function. Right Ventricle: Not well visualized. Left Atrium: The left atrium is normal in size. Right Atrium: The right atrium is normal in size. Mitral Valve: Mild mitral annular calcification. Trace mitral regurgitation. Aortic Valve: Normal appearance of the aortic valve. Trace aortic valve regurgitation. Tricuspid Valve: Tricuspid valve not well visualized. There is trace tricuspid regurgitation. Pulmonic Valve: There is trace pulmonic regurgitation. Pericardium: Normal pericardium with no significant pericardial effusion. Aorta: Normal aortic root. IVC: Normal size and normal respiratory collapse consistent with normal right atrial pressure. Conclusions 1.Normal left ventricular systolic function. Normal left ventricular cavity size. Mild concentric left ventricular hypertrophy. Mild enlargement of left ventricle cavity. Ejection fraction is visually estimated at 65 %. Abnormal Diastolic Function. 2.Mild mitral annular calcification. Trace mitral regurgitation. 3.Normal appearance of the aortic valve. Trace aortic valve regurgitation. 4.Tricuspid valve not well visualized. There is trace tricuspid regurgitation. Electronically Signed By: Selene Pereira 29-Jul-2016 16:36:38 -0700 Patient Name: YO GREEN Study Date: 29-Jul-2016 [id number]
--- NOTE | 2016-07-29 18:22 | PN ---
DATE: 07/29/2016 CARDIOLOGY FOLLOWUP SUBJECTIVE: The patient apparently has not been very compliant, does not answer my question. No re port of chest pain or pressure. He has an NG and suction. MEDICATIONS: Reviewed. PHYSICAL EXAMINATION: VITAL SIGNS: Temperature 98.2, heart rate of 64, blood pressure 146/65, respiratory rate of 18, sat ting 93%. HEENT: Normocephalic, atraumatic. Obese gentleman. Pupils are equal. NECK: Status post NG tube in place. CARDIOVASCULAR: Regular rate and rhythm. PULMONARY: With no wheezes heard. GASTROINTESTINAL: Obese, soft, mild tenderness to palpation. EXTREMITIES: With positive lower extremity edema. NEUROLOGIC: Awake although does not answer my questions. DIAGNOSTIC DATA: Abdominal x-ray showed indicating a partial resolving obstruction as above. LABORATORY DATA: WBC of 7.7, hemoglobin 9.1, platelets of 205. Sodium 137, potassium of 4, BUN of 26, creatinine 2.36, glucose of 111. ProBNP of 3310. Cholesterol 113, HDL of 27, LDL of 48. Echoc ardiogram was personally reviewed. It was suboptimal study which shows technically difficult study with ejection fraction with diastolic dysfunction. ASSESSMENT AND PLAN: 1. Small-bowel obstruction. 2. Hypertension. 3. Diabetes. 4. Anemia. 5. History of congestive heart failure, mostly secondary to diastolic dysfunction and chronic kidne y disease. SUMMARY/RECOMMENDATIONS: We will continue with the current cardiac care. Blood pressure under good control. Consider renal consultation as well. Follow with GI recommendations. Will follow with s urgery recommendation. Dictated By: SELENE PABLO/NICO Conf#: [id number] DID#: [id number]
--- NOTE | 2016-07-29 19:00 | PN ---
DATE: 07/29/2016 SUBJECTIVE: Mr. Childers is hospital day 1 for small-bowel obstruction. The patient is feeling isabell r. He has no abdominal pain. He denies bowel movement or flatus. OBJECTIVE VITAL SIGNS: He is afebrile. Vital signs stable. ABDOMEN: Soft, nontender, nondistended. LABORATORY DATA: Today reveal white count of 8, hematocrit of 30 and platelets of 205. An abdomina l series: His KUB today revealed previous oral contrast now in the colon in a partial resolving obs truction. ASSESSMENT AND PLAN: 1. Mr. Childers is a 61-year-old male with a resolving small-bowel obstruction. 2. Discontinue the NG tube and start clears tomorrow morning. 3. Possibly discharge later tomorrow. Dictated By: MOO ADAMES/NICO Conf#: [id number] DID#: [id number]
[2016-07-29 19:19] VITALS: BP 146/65; RESP 20
[2016-07-29] MEDS: INSULIN GLARGINE [LANtus] 3 ML PEN SC SCH (21:00)
[2016-07-29] MEDS: LATANOPROST 0.005% 2.5 ML OPH BOTH EYES SCH (21:09)
--- NOTE | 2016-07-29 22:09 | RADRPT ---
Vent Rate: 65 bpm RR Interval: 0 msec [place] Interval: 266 msec QRS Duration: 182 msec QT Interval: 462 msec QTC Interval: 480 msec P-R-T [place]: 30 - -61 - -41 degrees Sinus rhythm with 1st degree AV block Right bundle branch block Left anterior fascicular block Bifascicular block Septal infarct , age undetermined Abnormal ECG Electronically Signed By: Jaya Gamble [id number]
[2016-07-30] MEDS: INSULIN ASPART [NOVOLOG] 3 ML PEN SC SCH ×6 (01:00→20:44)
[2016-07-30] MEDS: PANTOPRAZOLE 40 MG INJ IV SCH (05:20)
[2016-07-30] MEDS: D5W-0.45 NACL + KCL 20 MEQ 1,000 ML IV SCH (05:42)
[2016-07-30 08:09] VITALS: BP 129/61; RESP 18
[2016-07-30] MEDS: BUMETANIDE 1 MG TAB PO SCH (09:19)
[2016-07-30] MEDS: ALLOPURINOL 100 MG TAB PO SCH ×2 (09:19→20:36)
[2016-07-30] MEDS: LOSARTAN 25 MG TAB PO SCH (09:21)
[2016-07-30] MEDS: NIFEdipine (XL) 30 MG TAB PO SCH ×2 (09:22→20:36)
--- NOTE | 2016-07-30 11:20 | PN ---
DATE: 07/30/2016 CARDIOLOGY FOLLOWUP SUBJECTIVE: The patient with no chest pain or pressure. Denies any shortness of breath, PND, ortho pnea to me. Abdominal has improved. He said that he passed gas and able to tolerate oral liquids now . He complains of knee pain though. MEDICATIONS: Reviewed as per medication reconciliation, personally reviewed. PHYSICAL EXAMINATION: VITAL SIGNS: Temperature 99, heart rate of 70, blood pressure 129/60, respiration rate of 18, satur ating 92%. HEENT: Normocephalic, atraumatic. Pupils are equal. CARDIOVASCULAR: Regular rate and rhythm. Systolic murmur. PULMONARY: With no wheezes heard. GASTROINTESTINAL: Soft, obese. No rebound or guarding. EXTREMITIES: Positive lower extremity edema. NEUROLOGIC: Awake and alert. PSYCHIATRIC: Anxious. LABORATORY: Glucose 143. ASSESSMENT AND PLAN: 1. Small-bowel obstruction, currently improving. Clear liquid diet now. 2. Hypertension, under control. 3. Diabetes. 4. Anemia. 5. Congestive heart failure with diastolic dysfunction. RECOMMENDATIONS: We will continue with the current cardiac care. Follow up with surgery recommenda tions. At that time, the diet as tolerated. Dictated By: SELENE SCOTT MD AV/NICO Conf#: [id number] DID#: [id number] CC: GENTRY MART MD;*End*
[2016-07-30] MEDS ORDERED: predniSONE 10 MG TAB PO SCH (12:30)
--- NOTE | 2016-07-30 13:37 | PDOCDIS ---
Discharge Instructions CONDITION Patient Condition: Good HOME CARE INSTRUCTIONS: Special Diet: Soft diet and advance as tolerated ACTIVITY: Activity Restrictions: Slowly Increase Activity Rest between Activity Avoid heavy lifting Avoid Heavy Housework FOLLOW UP/APPOINTMENTS Appointments Follow up with General surgeon as out-pt Follow up with PCP in one week Follow up with cardiology as out-pt GENTRY MART MD Jul 30, 2016 13:37
[2016-07-30] MEDS ORDERED: PANT40TA4 PO (13:39)
[2016-07-30] MEDS ORDERED: CARV12.579 PO (13:39)
--- NOTE | 2016-07-30 14:49 | DS ---
DATE OF ADMISSION: 07/28/2016 DATE OF DISCHARGE: 07/30/2016 CONSULTANTS: 1. Dr. Destin Gan. 2. Dr. Justin Pereira. ____ to the echocardiogram demonstrated normal left ventricular systolic function, normal left vent ricular cavity size, mild concentric left ventricular hypertrophy, mild enlargement of left ventricu lar cavity, ejection fraction visually estimated at 65%, abnormal diastolic dysfunction, mild mitral annular calcification, trace small regurg, normal appearance of aortic valve. Trace aortic valve r egurg, tricuspid valve is not visualized. There is a trace tricuspid regurgitation. DIAGNOSES: 1. Partial bowel obstruction, resolved. The patient is tolerating oral intake. 2. Essential hypertension, well controlled. 3. Diabetes mellitus, well controlled on Lantus. 4. Anemia, stable. 5. Congestive heart failure with diastolic dysfunction. Continue medical management. 6. Morbid obesity. Diet and exercise has been recommended. 7. Abdominal wall hernia. General surgery was consulted. Weight loss has been recommended prior t o surgery. MEDICATIONS: 1. Coreg 12.5 mg. 2. Protonix 40 mg. 3. ____ 100 mg. 3. Lipitor 20 mg 4. Bumex 2 mg. 5. Ferrous sulfate 325 mg. 6. Lantus 5 units. 7. Latanoprost eyedrop. 8. Losartan 9. Nifedipine. 10. Prednisone. ALLERGIES: NO KNOWN DRUG ALLERGIES. HOSPITAL COURSE: This is a 61-year-old gentleman with past medical history of umbilical hernia, sta tus post hernia repair with mesh placement x2, also small-bowel obstruction, exploratory laparotomy in [address] [place] [address] Chase, history of gout, dyslipidemia, diastolic congestive heart fail ure, hypertension, iron deficiency anemia, diabetes mellitus, diabetic nephropathy, diabetic neuropa thy, chronic steroids, moderate obesity, who presented to Emergency Room at [facility] having abdominal pain which started 07/27/2016 accompanied with nausea and 5 episodes of vomit ing. The patient presents to [facility], had a CT of the abdomen and pelvis which showed partial small-bowel obstruction to the level of the anastomosis. NG tube was placed. Gener al surgery was consulted. Patient was made n.p.o., IV fluid, pain medication, Zofran, Ativan. He w as seen and evaluated by the english tutor secondary to history of CHF, having severe lower extremit y edema. The patient was placed on oral diuresis. On 07/29/2016 the patient had an abdominal x-ray which showed ____oral contrast on the colon, indicating partial and resolving obstruction. The pat ient has been started on a full liquid diet and has been tolerating without any nausea or vomiting. At this time, patient is medically stable to be discharged home, was then cleared from a surgical s [place] with no surgical indication. LABORATORY: WBC 7.3, hemoglobin 9.1, hematocrit 29.6, platelets 205. Sodium 137, potassium 4.0, ch loride 105, bicarbonate 30, BUN 46, creatinine 2.36, glucose 111, albumin 3.1. Triglycerides 191, t otal cholesterol 113, LDL 48, HDL 27. TSH 2.82. CONDITION: Stable. Dictated By: GENTRY MART MD PN/NTS Conf#: [id number] DID#: [id number]
[2016-07-30 19:23] VITALS: BP 120/56; RESP 20
[2016-07-30] MEDS: LATANOPROST 0.005% 2.5 ML OPH BOTH EYES SCH (20:37)
== END 2016-07-30 21:50 | disposition home or self-care (01) | DRG 394 ==
LOC: E/R 07:09 → MS2 10:06
PROVIDERS: ADMIT Family Medicine; ATTEND Family Medicine
DX: K43.6 Other and unspecified ventral hernia with obstruction, without gangrene (principal); I13.0 Hypertensive heart and chronic kidney disease with heart failure and stage 1 through stage 4 chronic kidney disease, or unspecified chronic kidney disease; I50.30 Unspecified diastolic (congestive) heart failure; E11.22 Type 2 diabetes mellitus with diabetic chronic kidney disease; Z68.41 Body mass index [BMI] 40.0-44.9, adult; N18.9 Chronic kidney disease, unspecified; E66.01 Morbid (severe) obesity due to excess calories; Z98.0 Intestinal bypass and anastomosis status
CPT/HCPCS: 36415; 71010; 74010; 74176; 80053; 80061; 80162; 82962; 83036; 83690; 83735; 83880; 84439; 84443; 85025; 85610; 85730; 93005; 93306; 96374; 96375; C9113; J1170; J1815; J2060; J2270; J2405; J3480; J7030; J7512; Q9967

== ENCOUNTER 2017-07-07 21:31 | Inpatient (IN) | END 2017-07-17 17:03 | DRG 335 ==